=== PATIENT | female | born 1955 | race Caucasian/White ===

== ENCOUNTER → 2018-11-15 14:00 | Outpatient (CLI) | payer OTHER, SELFPAY ==
[2018-11-21 17:02] LABS: HPV Reflexed? NOT INDICATED
== END ==
PROVIDERS: Visit Provider Obstetrics & Gynecology
DX: Z12.4 Encounter for screening for malignant neoplasm of cervix (principal)
CPT/HCPCS: 87624; 88175; G0145

== ENCOUNTER → 2020-04-22 | Outpatient (CLI) | payer OTHER, SELFPAY ==
[2020-04-29 15:29] LABS: HPV Reflexed? NOT INDICATED
== END | disposition home or self-care (01) ==
LOC: LABSPEC 04-23 09:23
PROVIDERS: Visit Provider Obstetrics & Gynecology
DX: Z12.4 Encounter for screening for malignant neoplasm of cervix (principal)
CPT/HCPCS: 88175; G0145

== ENCOUNTER 2021-05-22 15:13 | Outpatient (CLI) | payer OTHER, MEDICARE, SELFPAY ==
--- NOTE | 2021-05-22 08:41 | KNEE_PTH ---
PATIENT: JULISSA LEE LOC: [facility] U#:[id number] AGE/SX: 65/F ROOM: RE05/22/[address]: Dr. Candelario Augustine MD : 1955 BED: DIS: 05/22/2021 SPEC #: [id number] RECD: 05/22/21 15:04 STATUS: GREG VIVIANA #: [id number] DIAMANTE: 05/22/21 08:[address]: Candelario Augustine DEPT: SURGICAL PATHOLOGY RECD BY: Nehemiah Clarke ENTERED: 05/25/21 08:32 SP TYPE: TOTAL KNEE OTHR DR: EDILMA Tissues: Knee, NOS Procedures: Decalcification bone/plaque Surgery Specimen Level IV HEADER OPERATION: Left total knee replacement PRE-OP DIAGNOSIS: Grade 4 primary osteoarthritis left knee TISSUE SUBMITTED: Left knee bone, tissue MICROSCOPIC DIAGNOSIS Bone and tissue of left knee, total knee resection: Severe degenerative joint disease. Mild synovial hyperplasia. AM:milton 05/28/2021 MICROSCOPIC DESCRIPTION Slides are reviewed. GROSS DESCRIPTION Received is one container designated bone and soft tissue left knee. The specimen consists of multiple fragments of moeller-yellow bone measuring in aggregate 11 x 9 x 3.5 cm. Also in the specimen container are multiple fragments of yellow-white soft tissue measuring in aggregate 8 x 5 x 2 cm. A number of bony fragments contain articular surfaces consistent with tibial plateau and femoral condyle and displaying prominent osteophyte formation, eburnation, and bone erosion. Rn Training sections are submitted in two cassettes as follows: 1 - soft tissue, 2 - bone after decalcification. / SJ:milton 05/25/2021 TC:5 [facility]: [id number], [id number]
== END 2021-05-22 23:59 | disposition home or self-care (01) ==
PROVIDERS: Visit Provider Orthopaedic Surgery
DX: M17.12 Unilateral primary osteoarthritis, left knee (principal)
CPT/HCPCS: 88305; 88311

== ENCOUNTER → 2022-05-07 | Outpatient (CLI) | payer OTHER, MEDICARE, SELFPAY ==
--- NOTE | 2022-05-07 08:00 | KNEE_PTH ---
PATIENT: JULISSA LEE LOC: [facility] U#:[id number] AGE/SX: 66/F ROOM: RE05/07/[address]: Dr. Candelario Augustine MD : 1955 BED: DIS: 05/07/2022 SPEC #: [id number] RECD: 05/07/22 14:56 STATUS: GREG RERaquel #: [id number] DIAMANTE: 05/07/22 08:[address]: Candelario Augustine DEPT: SURGICAL PATHOLOGY RECD BY: Nanci Burns ENTERED: 05/10/22 07:56 SP TYPE: TOTAL KNEE OTHR DR: EDILMA Tissues: Knee, NOS Procedures: Decalcification bone/plaque Surgery Specimen Level IV HEADER OPERATION: Right total knee replacement PRE-OP DIAGNOSIS: Right knee grade 4 osteoarthritis TISSUE SUBMITTED: Right knee bone and tissue MICROSCOPIC DIAGNOSIS Bone and tissue, right knee, total knee replacement/resection: Pieces of bone with degenerative osteoarthritic changes. Fibroadipose tissue, fibroconnective tissue and reactive synovial tissue. SCARLETT:milton 05/13/2022 MICROSCOPIC DESCRIPTION Slides are reviewed. GROSS DESCRIPTION Received is one container designated right knee bone and tissue. The specimen consists of multiple fragments of moeller-yellow bone measuring in aggregate 11.0 x 11.0 x 4.0 cm. Also in the specimen container are multiple fragments of yellow-white soft tissue measuring in aggregate 7.0 x 8.0 x 2.5 cm. A number of bony fragments contain articular surfaces consistent with tibial plateau and femoral condyle and displaying prominent osteophyte formation, eburnation and bone erosion. [employer] sections are submitted in two cassettes as follows: 1 - soft tissue, 2 - bone after decalcification. / SCARLETT:milton 05/10/2022 TC:5 [facility]: [id number], [id number]
== END | disposition home or self-care (01) ==
LOC: LABSPEC 15:16
PROVIDERS: Referring Provider Orthopaedic Surgery; Visit Provider Orthopaedic Surgery
DX: M17.11 Unilateral primary osteoarthritis, right knee (principal)
CPT/HCPCS: 88305; 88311

== ENCOUNTER 2023-01-07 08:22 | Day surgery (SDC) | payer MEDICARE, SELFPAY ==
[2023-01-07] VITALS (7 sets, daily range): BP systolic 106–120; BP diastolic 65–79; PULSE 68–82; RESP 16–18; TEMP 36.3–37.1; O2SAT 96–100; BMI 29.9
[2023-01-07] MEDS: Lactated Ringers 1,000 ML 15 ML IV (08:45)
--- NOTE | 2023-01-07 09:33 | HP.PCM_ITS ---
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 Is patient in pain?: No Allergies No Known Allergies Allergy (Unverified 12/01/22 14:05) Medications fluoxetine 20 mg capsule 20 mg PO 12/01/22 [History Confirmed 12/01/22] hydrochlorothiazide 12.5 mg tablet 12.5 mg PO 12/01/22 [History Confirmed 12/01/22] losartan 100 mg tablet 100 mg PO 12/01/22 [History Confirmed 12/01/22] turmeric 400 mg capsule mg PO 12/01/22 [History Confirmed 12/01/22] PFSH Medical History (Updated 12/01/22 @ 14:03 by Sara Whatley) Arthritis HTN (hypertension) Positive FIT (fecal immunochemical test) Sleep apnea Surgical History (Updated 12/01/22 @ 14:03 by Sara Whatley) S/P carpal tunnel release S/P knee replacement Family History (Updated 12/01/22 @ 14:04 by Sara Whatley) Mother Breast cancerDaughter DiabetesFather Hypertension Social History Smoking Status: Never smoker alcohol intake: current HPI HPI HPI: Patient is a 67-year-old female with positive fit test. Patient denies any gross blood in her stool or abdominal pain. She has never had a colonoscopy. She denies any family history of colon cancer. ROS General General: No weight change, appetite, fatigue, colon cancer, breast cancer or weakness HEENT HEENT: Yes swollen glands; No difficulty swallowing, eye injury, eye surgery or hoarseness Endo Endocrine: No thyroid disease, diabetes mellitus, thyroid cancer, Hair loss, heat intolerance or cold intolerance Skin Skin: No rash or changing moles Breast Breast: No left breast lump, right breast lump, nipple discharge, breast pain, abnormal mammogram, abnormal US or breast enlargement Musc Musculoskeletal: Yes arthritis; No back problems, rheumatoid arthritis, gout or joint pain Cardio Cardiovascular: Yes high blood pressure; No murmur, pacemaker, heart disease, atrial fibrillation, heart attack, heart stent, palpitations, shortness of breat with exertion or chest pain Psych Psychiatric: No depression, anxiety or hearing voices Resp Respiratory: No shortness of breath, Yes sleep apnea, No cough, No COPD, No asthma, No emphysema and No wheezing Gastro Gastrointestinal: No abdominal pain, No nausea or vomiting, No diarrhea, No constipation, No blood in stool, No acid reflux, No hemorrhoids, No ulcers, No gallbladder problem and No black,tarry stools Gilberto Hematologic: No blood thinners, No blood disorders, No bleeding, No anemia and No blood clots Neuro Neurologic: No system reviewed and no additional complaints, except as documented, No as per HPI, No abnormal gait, No abnormal hearing, No abnormal movements, No abnormal speech, No behavioral changes, No burning sensations, No confusion, No convulsions, No disequilibrium, No dizziness, No localized weakness, No frequent falls, No headache(s), No lack of coordination, No loss of vision, No memory loss, No numbness, No other visual disturbances, No radicular pain, No restless legs, No sensory deficit, No syncope, No tingling, No tr emor(s), No weakness and No other Exam Const General: cooperative Orientation: alert and oriented x3 HENMT Head: normal to inspection Neck Neck: normal visual inspection and full ROM Chest Chest palpation & inspection: normal inspection of the chest Resp Effort & Inspection: normal respiratory effort Auscultation: clear to auscultation bilaterally Cardio Rate: regular rate Rhythm: regular rhythm GI Inspection: non-distended Palpation: soft and nontender Skin General: no rashes or lesions noted Neuro General: patient alert and patient oriented x3 Extrem General: full ROM Psych Appearance: grossly normal Mental Status: mental status grossly normal Assessment and Plan Assessment and Plan (1) Positive FIT (fecal immunochemical test): Status: Acute Plan: Patient had positive fit test and requires colonoscopy. I explained endoscopy in detail to the patient. I explained the risks including but not limited to stroke or heart attack with anesthesia, perforation of the GI tract, bleeding, infection. I explained that any of these could necessitate further emergency surgery. The patient understands and all questions were answered sufficiently. The patient wishes to proceed with procedure. I have asked her to hold her turmeric for 5 days. Jonathan Wagner MD Pager: [facility] [address] [place] [address], [address] [place] [address] Office: I have examined the patient and the H&P has been reviewed. There are no clinical changes since date of exam.
--- NOTE | 2023-01-07 10:38 | OP.COLON_ITS ---
Patient Name: Rommel Mills Procedure Date: 01/07/2023 10:17 AM Date of : 1955 Age: 67 Procedure: Colonoscopy Indications: Positive fecal immunochemical test Providers: Jonathan Wagner MD Medicines: Monitored Anesthesia Care Patient Profile: This is a 67 year old female. Refer to note in patient chart for documentation of history and physical. Last Colonoscopy: none. The patient's first colonoscopy is today. Complications: No immediate complications. Procedure: Pre-Anesthesia Assessment: - Prior to the procedure, a History and Physical was performed, and patient medications and allergies were reviewed. The patient's tolerance of previous anesthesia was also reviewed. The risks and benefits of the procedure and the sedation options and risks were discussed with the patient. All questions were answered, and informed consent was obtained. Prior Anticoagulants: The patient has taken no anticoagulant or antiplatelet agents. After reviewing the risks and benefits, the patient was deemed in satisfactory condition to undergo the procedure. After I obtained informed consent, the scope was passed under direct vision. Throughout the procedure, the patient's blood pressure, pulse, and oxygen saturations were monitored continuously. The Colonoscope was introduced through the anus and advanced to the cecum, identified by appendiceal orifice and ileocecal valve. The colonoscopy was performed without difficulty. The patient tolerated the procedure well. The quality of the bowel preparation was good. The ileocecal valve, appendiceal orifice, and rectum were photographed. Scope In: 10:27:46 AM Scope Withdrawal Time 0 hours 3 minutes 52 seconds Scope Out: 10:33:43 AM Total Procedure Duration Time 0 hours 5 minutes 57 seconds Findings: The entire examined colon appeared normal on direct and retroflexion views. Impression: - The entire examined colon is normal on direct and retroflexion views. - No specimens collected. Recommendation: - Discharge patient to home. - Resume previous diet. - Continue present medications. - Repeat colonoscopy in 10 years for screening purposes. Procedure Code(s): --- Professional --- 26955, Colonoscopy, flexible; diagnostic, including collection of specimen(s) by brushing or washing, when performed (separate procedure) Diagnosis Code(s): --- Professional --- R19.5, Other fecal abnormalities CPT copyright 2021 [employer]. All rights reserved. The codes documented in this report are preliminary and upon manager new product review may be revised to meet current compliance requirements. Jonathan Wagner MD 01/07/2023 10:38:33 AM This report has been signed electronically. Number of Addenda: 0 Note Initiated On: 01/07/2023 10:17 AM
--- NOTE | 2023-01-07 10:39 | OP.CCLET_ITS ---
01/07/2023 Will Palacios Re : Colonoscopy procedure for Rommel Palacios This procedure was performed on Saturday, January 07, 2023. My impressions and recommendations are as follows: Impressions : - The entire examined colon is normal on direct and retroflexion views. - No specimens collected. Recommendations : - Discharge patient to home. - Resume previous diet. - Continue present medications. - Repeat colonoscopy in 10 years for screening purposes. My findings are described in the full procedure note, which is enclosed. If I can be of further assistance, please feel free to contact me at Doctor phone number(s): , Work: . Sincerely, Jonathan Wagner MD 01/07/2023 10:38:33 AM This report has been signed electronically.
== END 2023-01-07 11:22 | disposition home or self-care (01) ==
LOC: EN 08:24 → AC 08:25
PROVIDERS: PCP Family Medicine; Referring Provider Family Medicine; Visit Provider Surgery
PROC: 0DJD8ZZ Inspection of Lower Intestinal Tract, Via Natural or Artificial Opening Endoscopic (ICD-10-PCS; CPT 45378; principal; 2023-01-07 09:25)
DX: R19.5 Other fecal abnormalities (principal); I10 Essential (primary) hypertension; Z79.899 Other long term (current) drug therapy; Z96.659 Presence of unspecified artificial knee joint
CPT/HCPCS: 45378; J7120; J2405